=== PATIENT | female | born 1955 | race Caucasian/White ===

== ENCOUNTER 2025-10-13 11:50 | Emergency (ER) | payer MEDICARE, SELFPAY ==
[2025-10-13 11:51] VITALS: BP 151/89; PULSE 81; RESP 15; TEMP 36.6; O2SAT 100
--- NOTE | 2025-10-13 12:23 | EX.ED.DYSGE1 ---
HPI History of Present Illness Chief Complaint: Constipation Informant: patient Narrative Narrative: 70-year-old female presenting to the emergency room for the evaluation of constipation. Patient states that she has not had a good bowel movement for almost 1 week. She states that she has gotten small amounts and is having flatus. She states that she feels a lot of pressure near the rectum and feels hard stool. She states she has tried to assist the stool out without success. She has been taking MiraLAX daily without relief. No fevers. She states she is prone to urinary tract infections and also wonders if she could have 1 today. She states that she is not having really any symptoms of UTI but has had them frequently in the past and just felt the need to urinate but could not. PFSH PFS Medical History (Updated 10/13/25 @ 14:[address] Kavon Marie DO) High cholesterol Hypertension Hypothyroidism Ectopic of ovary Allergy/AdvReac Type Severity Reaction Status Date / Time bee venom protein (honey bee) Allergy Severe Anaphylaxis Verified 10/13/25 11:51 Surgical History (Updated 10/13/25 @ 12:30 by Juice Tellez) Hx of tonsillectomy History of cholecystectomy H/O: hysterectomy Social History Smoking Status: Unknown if ever smoked ROS ROS ED Constitutional Constitutional ED: Denies chills or weight loss Eyes Eyes: Denies change in vision or diplopia ENT ENT ED: Denies ear pain, rhinorrhea or sore throat Cardiovascular Cardiovascular: Denies chest pain, orthopnea, palpitations or racing heartbeat Respiratory/Chest Respiratory/Chest: Denies cough, dyspnea or orthopnea Gastrointestinal Gastrointestinal: Reports constipation; Denies abdominal pain, diarrhea, nausea or vomiting Genitourinary Genitourinary ED: Denies dysuria, hematuria or urinary frequency Musculoskeletal Musculoskeletal: Denies arthralgias or myalgias Integumentary Denies abscess or rash Neurologic Neurologic: Denies headache(s) or weakness Psychiatric Psychiatric: Denies anxiety, depression, suicidal ideation or suicidal thoughts Endocrine Endocrinology: Denies polydipsia, polyphagia or polyuria Allergic/Immunologic Allergic/Immunologic ED: Denies mouth swelling, tongue swelling or urticaria EXAM Physical Exam Const Vital Signs: 10/13/25 11:51 Temperature 97.8 F Temperature Source Temporal Pulse Rate 81 Respiratory Rate 15 Blood Pressure 151/89 H Blood Pressure Mean 109 Pulse Ox 100 Oxygen Delivery Method Room Air Positive well nourished and well developed General Appearance ED: well developed HEENT Reports normocephalic, head/scalp atraumatic and moist mucous membranes Eyes PERRL and EOMs intact bilaterally Neck no lymphadenopathy, supple and no JVD Resp normal respiratory effort and clear to auscultation bilaterally Cardio regular rate, regular rhythm and no murmurs GI normal to inspection, nondistended, normoactive bowel sounds and non-tender Palpation: soft Back/Spine no CVA tenderness and normal ROM Extremity normal to inspection General Extremety ED: Negative for edema General Extremity: Negative for edema Neuro oriented x3 and CN's II-XII intact bilaterally Sensorium / Orientation: alert Motor Exam: strength 5/5 throughout Psych mental status grossly normal Mood & Affect: Negative for depressed or tearful Skin no rashes or lesions noted and no wounds MDM MDM MDM Narrative Medical decision making narrative: Differential diagnosis includes but not limited to fecal impaction and constipation volvulus UTI diverticulitis colitis bowel obstruction My independent interpretation of the abdominal x-ray is constipation no evidence of volvulus or bowel obstruction. Urinalysis shows no overt infection. Patient received a soapsuds enema and was able to produce a large bowel movement. She had a near vagal episode during the bowel movement. She is feeling better. Patient will be discharged home. Instructions for a bottle of magnesium citrate today return if worsening or concerns History & Record Review Discussion w/independent historian: Patient Lab Data Attestation: I reviewed the patient's lab results. Labs: Laboratory Results - last 24 hr 10/13/25 13:04 Urine Color Yellow Urine Clarity Clear Urine pH 6.0 Ur Specific Margaret 1.015 Urine Protein Negative Urine Glucose (UA) Normal Urine Ketones Negative Urine Occult Blood Negative Urine Nitrite Negative Urine Bilirubin Negative Urine Urobilinogen Normal Ur Leukocyte Esterase 100 H Urine RBC 0 SEEN Urine WBC 0-5 SEEN Ur Squamous Epith Cells 0-5 SEEN Urine Bacteria 1+ Urine Mucus 2+ Radiography Diagnostic Testing: Clinical Impression(s) from Imaging Studies KUB X-Ray 10/13/25 12:25 IMPRESSION: No evidence of bowel obstruction. Moderate stool throughout the colon consistent with clinical history of constipation. Reading Location: [facility] Discharge Plan Triage Chief Complaint: Constipation ED Provider: Kavon Marie Dx/Rx/DC Orders Clinical Impression: Constipation, Abdominal pain Instructions: ED Constipation (Adult) Activity Restrictions/Additional Instructions: I would recommend buying a [id number] bottle of magnesium citrate and drinking it this afternoon. You will most likely have several bowel movements before morning. Please return to emergency department if any concerns or worsening Print Language: Vietnamese Disposition Disposition: Home, Self Care
--- NOTE | 2025-10-13 12:25 | RAD_ITS ---
PROCEDURE: ABDOMEN SINGLE VIEW 10/13/2025 REASON FOR EXAM: Clinical history of constipation TECHNIQUE: Procedure Code: RADABD Modality: DX Procedure: ABDOMEN SINGLE VIEW COMPARISON: None available. FINDINGS: Normal bowel-gas pattern. No air-fluid levels. Moderate stool volume throughout the colon. No abnormal calcification or soft tissue abnormality. Right upper quadrant surgical clips compatible with cholecystectomy. Degenerative changes of the spine most prominent in the lumbar spine. RAD/Abdomen Single View IMPRESSION: No evidence of bowel obstruction. Moderate stool throughout the colon consiste nt with clinical history of constipation. Reading Location: [id number]
[2025-10-13 13:09] LABS: Red Blood Cells-Urine 0 SEEN /hpf (0-5)
[2025-10-13 13:18] LABS: Color, Urine Yellow (Yellow); Glucose, Dipstick Normal (Normal); Ketone-Dipstick Negative (Negative); Leukocyte Esterase-Dipstick 100 /ul (Negative); Nitrite-Dipstick Negative (Negative); Occult Blood-Urine Negative /ul (Negative); Protein-Dipstick Negative (Negative); Specific Gravity, Urine 1.015 (1.002-1.030); Urine Bilirubin Dipstick Negative (Negative)
[2025-10-13 13:25] LABS: Mucous, Urine 2+ /hpf (<or=2+); Squamous Epithelial Cells - UA 0-5 SEEN /hpf (5-10)
--- OUTSIDE RECORDS SUMMARY | 2025-10-13 15:17 | XMS RPT_ITS | CCD ---
Author Organization [facility] Care Team Providers Care Gold Leaf Gilder Name Role Phone Unavailable Primary Care Provider Unavailabl e Problems Problem Classification Problem Date Documented Da te Episodic/Chronic Abdominal pain (1 source) Abdominal pain; Translations: [Unspecified abdominal pain] 09-02-2023 Episodic Results Test Name Value Interpretation Reference Range Facil ity CNOVon 09-02-2023 CNOV Office Visit (UCWSTR) SPENCER JERONIMO ([id number]) 1955 F Date Time Provider Department 09/02/23 12:15 PM REBECCA THOMPSON [facility] During your visit today, we recorded the following information about you: Rebecca Thompson APRN.CNP 09/02/2023 12:44 PM Signed Patient triaged at [facility]. Here today with lower abdominal pain. Reports hx of diverticulitis. Patient not known to [facility]. Not appropriate for [facility] care. I advised patient to call pcp. If s/s worsen go to ER. Patient stable/well appearing during triage. Allergies As of Date: 09/02/2023 (Not on File) Date Reviewed: Never Reviewed Primary Visit Diagnosis:Abdominal pain, unspecified abdominal location [R10.9] Problem List As Of Date: 09/02/2023 (None) Encounter Status:Closed by REBECCA THOMPSON on 09/02/23 Normal [facility] Encounters Encounter Date Encounter Type Care Provider Facility Start: 09-02-2023 End: 09-02-2023 ambulatory Facility:[facility] Start: 09-02-2023 End: 09-02-2023 Patient encounter procedure Rebecca Thompson APRN.CNP Work Phone: [facility] Comment on above: Abdominal pain, unsp ecified abdominal location (Primary Dx) Procedures Date Procedure Procedure Detail Performing Clinician Start: 10-13-2022 Lipid 1996 panel - S agata or Plasma Rebecca Thompson APRN.CNP Work Phone: Plan of Treatment Date Care Activity Detail Author Start: 10-13-2027 Lipid 1996 panel - S agata or Plasma Lipid Screening [facility] Start: 06-17-2023 Covid-19 Vaccine () Covid-19 Vaccine () [facility] Start: 06-17-2023 Influenza vaccination Influenza Vacc ine (#1) [facility] Start: 10-17-2022 Advance Directive Discussion Advance Directive Discussion [facility] Start: 10-17-2022 Depression Assessment Depression Ass essment [facility] Start: 2019 Bone Density Screening Bone Density Screening [facility] Start: 2014 RSV Vaccine (1 - 1-d ose 60+ series) RSV Vaccine (1 - 1-dose 60+ series) [facility] Start: 2004 Shingrix Vaccine (1 of 2) Shingrix V accine (1 of 2) [facility] Start: 1999 Cologuard (FIT-DNA) Cologuard (FIT-D NA) [facility] Start: 1999 Colonoscopy Colonoscopy [facility] Start: 1999 Colorectal Cancer Screening Colorectal Cancer Screening [facility] Start: [address] Colonography [facility] Start: 1999 Diabetes Screening Diabetes Screenin g [facility] Start: 1999 Fecal Occult Blood Fecal Occult Bloo d [facility] Start: 1999 Sigmoidoscopy Sigmoidoscopy [facility] Start: 1994 Mammography Mammogram Screening [facility] Start: 1973 Urine microalbumin profile DTa P,Tdap,Td Vaccine (1 - Tdap) [facility] Start: 1972 Hepatitis C Screening Hepatitis C Sc vonnie [facility] Immunizations Immunization Date Immunization Notes Care Provider Fa cility 07-18-2020 influenza virus vacc ine, unspecified formulation Rebecca Thompson APRN.[employer] Work Phone: [facility] Payers Date Payer Category Payer Unknown HOSPITAL/MEDICAL GENERIC MEDICAL GENERIC [id number] 2022-Present [address] [place] [address] Indemnity [id number] 2022 Unknown [id number] Social History Date Type Detail Facility Tobacco smoking stat [facility] Tobacco smoking consumption unknown [facility] Start: 1955 Sex Assigned At Not on file [facility] Gender identity Not on file [facility] inic Progress note 09-02-2023 Note Date & Type Note Facility 09-02-2023 Note HNO ID: [id number] Author: Rebecca Thompson APRN.CNP Service: ? Author Type: Nurse Practitioner Type: Progress Notes Filed: 09/02/2023 12:44 PM Note Text: Patient triaged at [facility]. Here today with lower abdominal pain. Reports hx of diverticulitis. Patient not known to [facility]. Not appropriate for [facility] care. I advised patient to call pcp. If s/s worsen go to ER. Patient stable/well appearing during triage. [facility] History of Present illness Narrative 09-02-2023 Rebecca Thompson APRN.CNP - 09/02/2023 12:43 PM EST Note Date & Type Note Facility 09-02-2023 History of Presen t illness Narrative Patient triaged at [facility]. Here today with lower abdominal pain. Reports hx of diverticulitis. Patient not known to [facility]. Not appropriate for express care. I advised patient to call pcp. If s/s worsen go to ER. Patient stable/well appearing during triage. documented in this encounter [facility] Evaluation note Note Date & Type Note Facility Evaluation note Diagnosis Abdominal pain, unspecified abdominal location- Primary documented in this encounter [facility] Summary Purpose Family History No Family History Records Found Advance Directives No Advanced Directives Records Found Additional Source Comments Source Comments (unrecognize d section and content) In the event this informatio n is protected by the Federal Confidentiality of Alcohol and Drug Abuse Patient Records regulations: The Federal rules restrict any use of the information to criminally investigate or prosecute any alcohol or drug abuse patient.[facility] INFORMATION SOURCE (unrecogn ized section and content) DATE CREATED AUTHOR 09/04/2023 [facility] FOR RECORDS PERTAINING TO PATIENTS WHO ARE OR HAVE BEEN ENROLLED IN A CHEMICAL DEPENDENCY/SUBSTANCEABUSE PROGRAM, SOME INFORMATION MAY BE OMITTED. This clinical summary was aggregated from multiple sources. Caution should be exercised in using it in the provision of clinical care. This summary normalizes information from multiple sources, and as a consequence, information in this document may materially change the coding, format and clinical context of patient data. In addition, data may be omitted in some cases. CLINICAL DECISIONS SHOULD BE BASED ON THE PRIMARY CLINICAL RECORDS. [facility]. provides no warranty or guarantee of the accuracy or completeness of information in this document.
[2025-10-13 15:18] VITALS: BP 137/64; PULSE 74; RESP 16; TEMP 36.6; O2SAT 100
== END 2025-10-13 15:19 | disposition home or self-care (01) ==
PROVIDERS: Emergency Provider Emergency Medicine; Visit Provider Emergency Medicine
DX: K59.00 Constipation, unspecified (principal); Z90.710 Acquired absence of both cervix and uterus; E78.00 Pure hypercholesterolemia, unspecified; I10 Essential (primary) hypertension; R10.9 Unspecified abdominal pain; Z90.49 Acquired absence of other specified parts of digestive tract
CPT/HCPCS: 74018; 81001; 99284; A4216